=== PATIENT | male | born 1970 | race Caucasian/White ===

== ENCOUNTER 2021-09-08 18:40 | Emergency (ER) | payer MEDICARE, MEDICAID ==
[~2021-09-08] VITALS: Ht 180.3 cm; Wt 75.0 kg
[~2021-09-08 18:40] MED LIST: DEPA500T; DEPA500T2 PO; INVE234I IM; RISP2TAB12; RISP3TAB16; RISP3TAB2 PO; RISPERDAL CONSTA; RISPERDAL CONSTA IM; TYLE325T5 PO; ZIPR80CAP; ZYPR15TA PO; ZYPR20TA; cogentin PO; depakote PO; haldol; haldol PO; no current meds
[2021-09-08 18:51] VITALS: BP 116/79
[2021-09-08] MEDS ORDERED: ZYPR10TA (18:54)
[2021-09-08] MEDS ORDERED: OLAN15TA13 (18:54)
== END 2021-09-08 20:25 | disposition home or self-care (01) ==
LOC: EDBD 18:40 → M ED 18:40
DX: F10.129 Alcohol abuse with intoxication, unspecified (principal); F20.9 Schizophrenia, unspecified; F17.200 Nicotine dependence, unspecified, uncomplicated

== ENCOUNTER 2022-02-02 20:45 | Inpatient (IN) | payer MEDICAID, MEDICARE ==
[~2022-02-02] VITALS: Ht 180.3 cm; Wt 76.4 kg
[~2022-02-02 20:45] MED LIST changes: +OLAN15TA13 PO; +ZYPR10TA
[2022-02-02] MEDS ORDERED: ACETAMINOPHEN 325 MG TAB PO ONE (21:30)
[2022-02-02 21:45] LABS: HEMATOCRIT 39.6 % (42.0-52.0); HEMOGLOBIN 13.4 g/dl (13.5-17.5); MEAN CORPUSCULAR HEMOGLOBIN 32.8 pg (27.0-33.0); MEAN CORPUSCULAR HGB CONC 33.8 g/dl (32.0-36.5); MEAN CORPUSCULAR VOLUME 96.8 fl (80.0-96.0); PLATELET COUNT, AUTOMATED 239 10^3/uL (150-450); RED BLOOD COUNT 4.09 10^6/uL (4.30-6.10); WHITE BLOOD COUNT 11.7 10^3/uL (4.0-10.0)
[2022-02-02 21:52] LABS: AMPHETAMINES LEVEL URINE NEGATIVE (NEGATIVE); BARBITURATES URINE NEGATIVE (NEGATIVE); BENZODIAZEPINES URINE NEGATIVE (NEGATIVE); CANNABINOIDS URINE NEGATIVE (NEGATIVE); COCAINE METABOLITE URINE NEGATIVE (NEGATIVE); METHADONE URINE NEGATIVE (NEGATIVE); OPIATES URINE NEGATIVE (NEGATIVE); PHENCYCLIDINE URINE NEGATIVE (NEGATIVE)
[2022-02-02 22:30] LABS: ACETAMINOPHEN LEVEL < 2.0 UG/ML (10.0-30.0); ALBUMIN 3.8 GM/DL (3.2-5.2); ALT/SGPT 27 U/L (12-78); BILIRUBIN,DIRECT 0.1 MG/DL (0.0-0.2); BILIRUBIN,TOTAL 0.3 MG/DL (0.2-1.0); BLOOD UREA NITROGEN 7 MG/DL (7-18); CARBON DIOXIDE LEVEL 26 MEQ/L (21-32); CHLORIDE LEVEL 111 MEQ/L (98-107); CREATININE FOR GFR 0.94 MG/DL (0.70-1.30); ETHYL ALCOHOL (ETHANOL) 0.121 % (0.000-0.010); GLOMERULAR FILTRATION RATE > 60.0 (>56); GLUCOSE, FASTING 93 MG/DL (70-100); POTASSIUM SERUM 4.2 MEQ/L (3.5-5.1); SALICYLATE LEVEL 4.2 MG/DL (5.0-30.0); SODIUM LEVEL 141 MEQ/L (136-145); TOTAL PROTEIN 7.2 GM/DL (6.4-8.2)
[2022-02-02 22:38] LABS: RSV AMPLIFICATION NEGATIVE (NEGATIVE)
[2022-02-03] MEDS ORDERED: MED REC COMMENT (07:33)
[2022-02-03] MEDS ORDERED: HOME MED LIST COMPLETE! XX SCH (07:35)
[2022-02-03] MEDS: MULTIVITAMINS/MINERALS THERAP 1 TAB PO SCH ×2 (09:00→15:02)
[2022-02-03] MEDS: FOLIC ACID 1MG TAB PO SCH ×2 (09:00→15:02)
[2022-02-03] MEDS: NICOTINE 21MG/24HR 1 EA TRANSDERMAL TD SCH (09:00)
[2022-02-03] MEDS: THIAMINE 100 MG TAB PO SCH ×3 (09:00→21:21)
[2022-02-03] MEDS ORDERED: LORazepam 2 MG TAB PO PRN (14:10)
[2022-02-03] MEDS ORDERED: MAALOX 30 ML SUSP *UDC PO PRN (14:10)
[2022-02-03 15:55] VITALS: BP 132/82
[2022-02-03] MEDS ORDERED: OLANZapine 10 MG TAB PO ONE (17:00)
[2022-02-03] MEDS ORDERED: OLANZapine 5 MG TAB PO SCH ×2 (21:00)
[2022-02-04] MEDS: NICOTINE 21MG/24HR 1 EA TRANSDERMAL TD SCH (08:22)
[2022-02-04] MEDS: FOLIC ACID 1MG TAB PO SCH (08:22)
[2022-02-04] MEDS: THIAMINE 100 MG TAB PO SCH ×2 (08:22→20:16)
[2022-02-04] MEDS: MULTIVITAMINS/MINERALS THERAP 1 TAB PO SCH (08:22)
[2022-02-04] MEDS ORDERED: BENZTROPINE MESYLATE 2MG/2ML VIAL IM PRN (14:30)
[2022-02-04] MEDS: traZODone 50 MG TAB PO PRN (20:16)
[2022-02-04] MEDS: OLANZapine 5 MG TAB PO SCH (20:16)
[2022-02-05 06:56] VITALS: BP 122/77
[2022-02-05] MEDS: MULTIVITAMINS/MINERALS THERAP 1 TAB PO SCH (08:24)
[2022-02-05] MEDS: FOLIC ACID 1MG TAB PO SCH (08:24)
[2022-02-05] MEDS: THIAMINE 100 MG TAB PO SCH ×2 (08:24→21:00)
[2022-02-05] MEDS: NICOTINE 21MG/24HR 1 EA TRANSDERMAL TD SCH (09:00)
[2022-02-05] MEDS: BENZTROPINE 1 MG TAB PO PRN (12:46)
[2022-02-05 14:11] VITALS: BP 140/80
[2022-02-05 18:38] VITALS: BP 140/80
[2022-02-05] MEDS: OLANZapine 5 MG TAB PO SCH (21:00)
[2022-02-06 06:32] VITALS: BP 128/89
[2022-02-06 06:33] VITALS: BP 128/89
[2022-02-06] MEDS: BENZTROPINE 1 MG TAB PO PRN (08:47)
[2022-02-06] MEDS: FOLIC ACID 1MG TAB PO SCH (08:47)
[2022-02-06] MEDS: MULTIVITAMINS/MINERALS THERAP 1 TAB PO SCH (08:47)
[2022-02-06] MEDS: NICOTINE 21MG/24HR 1 EA TRANSDERMAL TD SCH (08:47)
[2022-02-06 18:00] VITALS: BP 136/78
[2022-02-06] MEDS: traZODone 50 MG TAB PO PRN (20:23)
[2022-02-06] MEDS: OLANZapine 5 MG TAB PO SCH (20:23)
[2022-02-07 06:45] VITALS: BP 125/68
[2022-02-07 07:00] VITALS: BP 125/68
[2022-02-07] MEDS: NICOTINE 21MG/24HR 1 EA TRANSDERMAL TD SCH (07:49)
[2022-02-07] MEDS: FOLIC ACID 1MG TAB PO SCH (07:51)
[2022-02-07] MEDS: BENZTROPINE 1 MG TAB PO PRN (07:52)
[2022-02-07] MEDS: MULTIVITAMINS/MINERALS THERAP 1 TAB PO SCH (07:52)
[2022-02-07] MEDS ORDERED: traZODone 100 MG TAB PO PRN (13:00)
[2022-02-07 16:31] VITALS: BP 98/67
[2022-02-07] MEDS: OLANZapine 5 MG TAB PO SCH (20:19)
[2022-02-08] MEDS: NICOTINE 21MG/24HR 1 EA TRANSDERMAL TD SCH (07:53)
[2022-02-08] MEDS: MULTIVITAMINS/MINERALS THERAP 1 TAB PO SCH (07:55)
[2022-02-08] MEDS: BENZTROPINE 1 MG TAB PO PRN (07:55)
[2022-02-08] MEDS: FOLIC ACID 1MG TAB PO SCH (07:55)
[2022-02-08] MEDS ORDERED: traZODone 50 MG TAB PO PRN (13:20)
[2022-02-08] MEDS ORDERED: LORazepam 2 MG TAB PO PRN (13:20)
[2022-02-08] MEDS: OLANZapine 5 MG TAB PO SCH (20:04)
[2022-02-08] MEDS: IBUPROFEN 400MG TAB PO PRN (20:05)
[2022-02-09] MEDS: NICOTINE 21MG/24HR 1 EA TRANSDERMAL TD SCH (09:00)
[2022-02-09] MEDS: FOLIC ACID 1MG TAB PO SCH (10:10)
[2022-02-09] MEDS: MULTIVITAMINS/MINERALS THERAP 1 TAB PO SCH (10:10)
[2022-02-09] MEDS: OLANZapine 5 MG TAB PO SCH (20:07)
[2022-02-10 06:41] VITALS: BP 131/72
[2022-02-10] MEDS: NICOTINE 21MG/24HR 1 EA TRANSDERMAL TD SCH (08:03)
[2022-02-10] MEDS: FOLIC ACID 1MG TAB PO SCH (08:03)
[2022-02-10] MEDS: MULTIVITAMINS/MINERALS THERAP 1 TAB PO SCH (08:03)
[2022-02-10] MEDS: BENZTROPINE 1 MG TAB PO PRN ×2 (08:04→20:00)
[2022-02-10] MEDS: IBUPROFEN 400MG TAB PO PRN (17:06)
[2022-02-10] MEDS: diphenhydrAMINE 25MG CAP PO PRN (17:06)
[2022-02-10] MEDS: OLANZapine 5 MG TAB PO SCH (20:00)
[2022-02-11 05:51] VITALS: BP 109/74
[2022-02-11] MEDS: AUGMENTIN 875 MG TAB PO SCH ×2 (09:00→20:09)
[2022-02-11] MEDS: NICOTINE 21MG/24HR 1 EA TRANSDERMAL TD SCH (09:00)
[2022-02-11] MEDS: MULTIVITAMINS/MINERALS THERAP 1 TAB PO SCH (09:17)
[2022-02-11] MEDS: BENZTROPINE 1 MG TAB PO PRN (09:17)
[2022-02-11] MEDS: FOLIC ACID 1MG TAB PO SCH (09:17)
[2022-02-11 13:16] LABS: BASO % 0.2 % (0.0-1.0); EOS # 0.1 10^3/uL (0.0-0.5); HEMOGLOBIN 14.9 g/dl (13.5-17.5); LYMPH # 2.2 10^3/uL (1.5-5.0); LYMPH % 17.6 % (24.0-44.0); MEAN CORPUSCULAR HEMOGLOBIN 32.7 pg (27.0-33.0); MEAN CORPUSCULAR HGB CONC 33.1 g/dl (32.0-36.5); MEAN CORPUSCULAR VOLUME 98.7 fl (80.0-96.0); MONO % 7.6 % (2.0-8.0); NEUTROPHILS # 9.1 10^3/uL (1.5-8.5); NEUTROPHILS % 73.2 % (36.0-66.0); PLATELET COUNT, AUTOMATED 297 10^3/uL (150-450); RED BLOOD COUNT 4.56 10^6/uL (4.30-6.10); WHITE BLOOD COUNT 12.5 10^3/uL (4.0-10.0)
[2022-02-11 13:59] LABS: FREE T4 0.74 NG/DL (0.76-1.46)
[2022-02-11] MEDS: OLANZapine 5 MG TAB PO SCH (20:09)
[2022-02-12 06:47] VITALS: BP 110/58
[2022-02-12] MEDS: NICOTINE 21MG/24HR 1 EA TRANSDERMAL TD SCH (09:00)
[2022-02-12] MEDS: AUGMENTIN 875 MG TAB PO SCH ×2 (09:09→21:10)
[2022-02-12] MEDS: FOLIC ACID 1MG TAB PO SCH (09:09)
[2022-02-12] MEDS: MULTIVITAMINS/MINERALS THERAP 1 TAB PO SCH (09:09)
[2022-02-12] MEDS: ACETAMINOPHEN TAB 650MG DOSE (2X325MG) PO PRN (16:03)
[2022-02-12 16:28] VITALS: BP 112/58
[2022-02-12] MEDS: OLANZapine 5 MG TAB PO SCH (21:10)
[2022-02-13 06:31] VITALS: BP 112/62
[2022-02-13] MEDS: NICOTINE 21MG/24HR 1 EA TRANSDERMAL TD SCH (07:58)
[2022-02-13] MEDS: MULTIVITAMINS/MINERALS THERAP 1 TAB PO SCH (07:59)
[2022-02-13] MEDS: AUGMENTIN 875 MG TAB PO SCH ×2 (08:00→20:33)
[2022-02-13] MEDS: FOLIC ACID 1MG TAB PO SCH (08:00)
[2022-02-13] MEDS: ACETAMINOPHEN TAB 650MG DOSE (2X325MG) PO PRN (15:44)
[2022-02-13] MEDS: OLANZapine 5 MG TAB PO SCH (20:33)
[2022-02-14 06:23] VITALS: BP 101/50
[2022-02-14] MEDS: NICOTINE 21MG/24HR 1 EA TRANSDERMAL TD SCH (09:00)
[2022-02-14] MEDS: AUGMENTIN 875 MG TAB PO SCH ×2 (09:48→20:01)
[2022-02-14] MEDS: FOLIC ACID 1MG TAB PO SCH (09:48)
[2022-02-14] MEDS: MULTIVITAMINS/MINERALS THERAP 1 TAB PO SCH (09:48)
[2022-02-14] MEDS ORDERED: TUBERCULIN PPD 5 UNITS/0.1 ML ID ONE (13:00)
[2022-02-14] MEDS ORDERED: PPD DOCUMENTATION ENTRY MISC XX ONE (13:00)
[2022-02-14 18:17] VITALS: BP 139/93
[2022-02-14] MEDS: ACETAMINOPHEN TAB 650MG DOSE (2X325MG) PO PRN (19:20)
[2022-02-14] MEDS: OLANZapine 5 MG TAB PO SCH (20:01)
[2022-02-15 06:08] VITALS: BP 104/48
[2022-02-15] MEDS: NICOTINE 21MG/24HR 1 EA TRANSDERMAL TD SCH (09:00)
[2022-02-15] MEDS: MULTIVITAMINS/MINERALS THERAP 1 TAB PO SCH (09:46)
[2022-02-15] MEDS: FOLIC ACID 1MG TAB PO SCH (09:46)
[2022-02-15] MEDS: AUGMENTIN 875 MG TAB PO SCH ×2 (09:46→21:21)
[2022-02-15] MEDS: ACETAMINOPHEN TAB 650MG DOSE (2X325MG) PO PRN (15:59)
[2022-02-15] MEDS: NEOSPORIN TOP OINT 15GM TOP SCH ×2 (17:12→21:21)
[2022-02-15 18:12] VITALS: BP 108/79
[2022-02-15] MEDS: traZODone 50 MG TAB PO PRN (21:20)
[2022-02-15] MEDS: OLANZapine 5 MG TAB PO SCH (21:21)
[2022-02-16 06:07] VITALS: BP 101/55
[2022-02-16] MEDS: NEOSPORIN TOP OINT 15GM TOP SCH ×2 (09:00→20:22)
[2022-02-16] MEDS: NICOTINE 21MG/24HR 1 EA TRANSDERMAL TD SCH (09:00)
[2022-02-16] MEDS: FOLIC ACID 1MG TAB PO SCH (09:06)
[2022-02-16] MEDS: AUGMENTIN 875 MG TAB PO SCH ×2 (09:06→20:22)
[2022-02-16] MEDS: ACETAMINOPHEN TAB 650MG DOSE (2X325MG) PO PRN (09:06)
[2022-02-16] MEDS: MULTIVITAMINS/MINERALS THERAP 1 TAB PO SCH (09:06)
[2022-02-16] MEDS: BENZTROPINE 1 MG TAB PO PRN (09:07)
[2022-02-16] MEDS ORDERED: PPD DOCUMENTATION ENTRY MISC XX ONE (12:00)
[2022-02-16 17:55] VITALS: BP 149/79
[2022-02-16] MEDS: OLANZapine 5 MG TAB PO SCH (20:22)
[2022-02-16] MEDS: traZODone 50 MG TAB PO PRN (20:24)
[2022-02-17] MEDS: NICOTINE 21MG/24HR 1 EA TRANSDERMAL TD SCH (09:00)
[2022-02-17] MEDS: AUGMENTIN 875 MG TAB PO SCH ×2 (09:24→20:21)
[2022-02-17] MEDS: MULTIVITAMINS/MINERALS THERAP 1 TAB PO SCH (09:24)
[2022-02-17] MEDS: FOLIC ACID 1MG TAB PO SCH (09:25)
[2022-02-17] MEDS: ACETAMINOPHEN TAB 650MG DOSE (2X325MG) PO PRN (09:26)
[2022-02-17] MEDS: BENZTROPINE 1 MG TAB PO SCH ×2 (09:28→20:21)
[2022-02-17] MEDS: NEOSPORIN TOP OINT 15GM TOP SCH ×2 (09:32→20:24)
[2022-02-17 18:16] VITALS: BP 118/64
[2022-02-17] MEDS: OLANZapine 5 MG TAB PO SCH (20:21)
[2022-02-17] MEDS: MOM 30ML SUSPENSION UDC PO PRN (21:03)
[2022-02-18] MEDS: NICOTINE 21MG/24HR 1 EA TRANSDERMAL TD SCH (08:39)
[2022-02-18] MEDS: BENZTROPINE 1 MG TAB PO SCH ×2 (09:02→21:41)
[2022-02-18] MEDS: FOLIC ACID 1MG TAB PO SCH (09:02)
[2022-02-18] MEDS: MULTIVITAMINS/MINERALS THERAP 1 TAB PO SCH (09:02)
[2022-02-18] MEDS: NEOSPORIN TOP OINT 15GM TOP SCH ×2 (09:03→21:42)
[2022-02-18 18:04] VITALS: BP 112/65
[2022-02-18] MEDS: ACETAMINOPHEN TAB 650MG DOSE (2X325MG) PO PRN (21:41)
[2022-02-18] MEDS: OLANZapine 5 MG TAB PO SCH (21:42)
[2022-02-19 06:43] VITALS: BP 106/55
[2022-02-19] MEDS: BENZTROPINE 1 MG TAB PO SCH ×2 (08:47→21:10)
[2022-02-19] MEDS: NEOSPORIN TOP OINT 15GM TOP SCH ×2 (08:47→21:08)
[2022-02-19] MEDS: FOLIC ACID 1MG TAB PO SCH (08:47)
[2022-02-19] MEDS: MULTIVITAMINS/MINERALS THERAP 1 TAB PO SCH (08:47)
[2022-02-19] MEDS: NICOTINE 21MG/24HR 1 EA TRANSDERMAL TD SCH (08:48)
[2022-02-19] MEDS: ACETAMINOPHEN TAB 650MG DOSE (2X325MG) PO PRN ×2 (17:01→17:02)
[2022-02-19 18:00] VITALS: BP 100/53
[2022-02-19] MEDS: OLANZapine 5 MG TAB PO SCH (21:10)
[2022-02-20 06:20] VITALS: BP 129/74
[2022-02-20] MEDS: NEOSPORIN TOP OINT 15GM TOP SCH ×2 (09:00→20:02)
[2022-02-20] MEDS: NICOTINE 21MG/24HR 1 EA TRANSDERMAL TD SCH (09:00)
[2022-02-20] MEDS: MULTIVITAMINS/MINERALS THERAP 1 TAB PO SCH (09:24)
[2022-02-20] MEDS: BENZTROPINE 1 MG TAB PO SCH ×2 (09:24→20:00)
[2022-02-20] MEDS: FOLIC ACID 1MG TAB PO SCH (09:24)
[2022-02-20] MEDS: MOM 30ML SUSPENSION UDC PO PRN (15:31)
[2022-02-20] MEDS: ACETAMINOPHEN TAB 650MG DOSE (2X325MG) PO PRN (16:07)
[2022-02-20 18:38] VITALS: BP 100/58
[2022-02-20] MEDS: OLANZapine 5 MG TAB PO SCH (20:00)
[2022-02-20] MEDS: PILL CUTTER 1 EACH XX PRN (20:01)
[2022-02-20] MEDS: traZODone 50 MG TAB PO PRN (20:02)
[2022-02-21 05:41] VITALS: BP 104/66
[2022-02-21] MEDS: NICOTINE 21MG/24HR 1 EA TRANSDERMAL TD SCH (09:00)
[2022-02-21] MEDS: NEOSPORIN TOP OINT 15GM TOP SCH ×2 (09:00→20:11)
[2022-02-21] MEDS: MULTIVITAMINS/MINERALS THERAP 1 TAB PO SCH (09:41)
[2022-02-21] MEDS: FOLIC ACID 1MG TAB PO SCH (09:41)
[2022-02-21] MEDS: ACETAMINOPHEN TAB 650MG DOSE (2X325MG) PO PRN ×2 (09:41→20:10)
[2022-02-21] MEDS: BENZTROPINE 1 MG TAB PO SCH ×2 (09:41→20:10)
[2022-02-21] MEDS: OLANZapine 5 MG TAB PO SCH (20:10)
[2022-02-22] MEDS: traZODone 50 MG TAB PO PRN ×2 (01:24→20:53)
[2022-02-22 06:22] VITALS: BP 120/57
[2022-02-22] MEDS: NEOSPORIN TOP OINT 15GM TOP SCH ×2 (09:00→20:55)
[2022-02-22] MEDS: NICOTINE 21MG/24HR 1 EA TRANSDERMAL TD SCH (09:00)
[2022-02-22] MEDS: BENZTROPINE 1 MG TAB PO SCH ×2 (09:23→20:53)
[2022-02-22] MEDS: FOLIC ACID 1MG TAB PO SCH (09:23)
[2022-02-22] MEDS: MULTIVITAMINS/MINERALS THERAP 1 TAB PO SCH (09:23)
[2022-02-22] MEDS: ACETAMINOPHEN TAB 650MG DOSE (2X325MG) PO PRN (15:07)
[2022-02-22 16:21] VITALS: BP 100/60
[2022-02-22] MEDS: IBUPROFEN 400MG TAB PO PRN (19:01)
[2022-02-22] MEDS: diphenhydrAMINE 25MG CAP PO PRN (19:20)
[2022-02-22] MEDS: OLANZapine 5 MG TAB PO SCH (20:54)
[2022-02-23 06:19] VITALS: BP 116/62
[2022-02-23] MEDS: NICOTINE 21MG/24HR 1 EA TRANSDERMAL TD SCH (09:00)
[2022-02-23] MEDS: NEOSPORIN TOP OINT 15GM TOP SCH ×2 (09:00→20:04)
[2022-02-23] MEDS: BENZTROPINE 1 MG TAB PO SCH ×2 (09:17→20:05)
[2022-02-23] MEDS: MULTIVITAMINS/MINERALS THERAP 1 TAB PO SCH (09:17)
[2022-02-23] MEDS: FOLIC ACID 1MG TAB PO SCH (09:17)
[2022-02-23 16:42] VITALS: BP 105/60
[2022-02-23] MEDS: ACETAMINOPHEN TAB 650MG DOSE (2X325MG) PO PRN (16:47)
[2022-02-23] MEDS: OLANZapine 5 MG TAB PO SCH (20:05)
[2022-02-23] MEDS: PILL CUTTER 1 EACH XX PRN (20:05)
[2022-02-23] MEDS: traZODone 50 MG TAB PO PRN (20:05)
[2022-02-23] MEDS: MOM 30ML SUSPENSION UDC PO PRN (20:45)
[2022-02-24 06:16] VITALS: BP 106/64
[2022-02-24] MEDS: NICOTINE 21MG/24HR 1 EA TRANSDERMAL TD SCH (08:57)
[2022-02-24] MEDS: NEOSPORIN TOP OINT 15GM TOP SCH ×2 (08:57→21:00)
[2022-02-24] MEDS: MULTIVITAMINS/MINERALS THERAP 1 TAB PO SCH (09:19)
[2022-02-24] MEDS: BENZTROPINE 1 MG TAB PO SCH ×2 (09:19→21:57)
[2022-02-24] MEDS: FOLIC ACID 1MG TAB PO SCH (09:19)
[2022-02-24 18:20] VITALS: BP 108/55
[2022-02-24] MEDS: traZODone 50 MG TAB PO PRN (21:57)
[2022-02-24] MEDS: OLANZapine 5 MG TAB PO SCH (21:57)
[2022-02-25 06:22] VITALS: BP 103/64
[2022-02-25] MEDS: NEOSPORIN TOP OINT 15GM TOP SCH ×2 (09:00→20:23)
[2022-02-25] MEDS: NICOTINE 21MG/24HR 1 EA TRANSDERMAL TD SCH (09:00)
[2022-02-25] MEDS: FOLIC ACID 1MG TAB PO SCH (09:32)
[2022-02-25] MEDS: MULTIVITAMINS/MINERALS THERAP 1 TAB PO SCH (09:32)
[2022-02-25] MEDS: BENZTROPINE 1 MG TAB PO SCH ×2 (09:32→20:22)
[2022-02-25] MEDS: ACETAMINOPHEN TAB 650MG DOSE (2X325MG) PO PRN (16:27)
[2022-02-25] MEDS: traZODone 50 MG TAB PO PRN (20:22)
[2022-02-25] MEDS: OLANZapine 5 MG TAB PO SCH (20:22)
[2022-02-25] MEDS: IBUPROFEN 400MG TAB PO PRN (20:36)
[2022-02-26 06:29] VITALS: BP 101/58
[2022-02-26] MEDS: NICOTINE 21MG/24HR 1 EA TRANSDERMAL TD SCH (08:48)
[2022-02-26] MEDS: MULTIVITAMINS/MINERALS THERAP 1 TAB PO SCH (08:49)
[2022-02-26] MEDS: BENZTROPINE 1 MG TAB PO SCH ×2 (08:49→21:28)
[2022-02-26] MEDS: FOLIC ACID 1MG TAB PO SCH (08:49)
[2022-02-26] MEDS: NEOSPORIN TOP OINT 15GM TOP SCH ×2 (09:00→21:00)
[2022-02-26] MEDS: OLANZapine 5 MG TAB PO SCH (21:28)
[2022-02-26] MEDS: traZODone 50 MG TAB PO PRN (21:28)
[2022-02-27 06:32] VITALS: BP 92/56
[2022-02-27] MEDS: NICOTINE 21MG/24HR 1 EA TRANSDERMAL TD SCH (09:00)
[2022-02-27] MEDS: NEOSPORIN TOP OINT 15GM TOP SCH ×2 (09:00→20:55)
[2022-02-27] MEDS: MULTIVITAMINS/MINERALS THERAP 1 TAB PO SCH (09:25)
[2022-02-27] MEDS: BENZTROPINE 1 MG TAB PO SCH ×2 (09:25→20:55)
[2022-02-27] MEDS: FOLIC ACID 1MG TAB PO SCH (09:25)
[2022-02-27] MEDS: ACETAMINOPHEN TAB 650MG DOSE (2X325MG) PO PRN (17:20)
[2022-02-27] MEDS: OLANZapine 5 MG TAB PO SCH (20:55)
[2022-02-27] MEDS: traZODone 50 MG TAB PO PRN (20:55)
[2022-02-28 06:17] VITALS: BP 99/56
[2022-02-28] MEDS: NICOTINE 21MG/24HR 1 EA TRANSDERMAL TD SCH (08:15)
[2022-02-28] MEDS: NEOSPORIN TOP OINT 15GM TOP SCH ×2 (08:17→20:02)
[2022-02-28] MEDS: BENZTROPINE 1 MG TAB PO SCH ×2 (08:18→20:01)
[2022-02-28] MEDS: FOLIC ACID 1MG TAB PO SCH (08:18)
[2022-02-28] MEDS: MULTIVITAMINS/MINERALS THERAP 1 TAB PO SCH (08:18)
[2022-02-28] MEDS: ACETAMINOPHEN TAB 650MG DOSE (2X325MG) PO PRN (17:16)
[2022-02-28 17:22] VITALS: BP 98/57
[2022-02-28] MEDS: OLANZapine 5 MG TAB PO SCH (20:01)
[2022-02-28] MEDS: traZODone 50 MG TAB PO PRN (20:01)
[2022-02-28] MEDS: PILL CUTTER 1 EACH XX PRN (20:01)
[2022-03-01 06:21] VITALS: BP 98/68
[2022-03-01] MEDS: BENZTROPINE 1 MG TAB PO SCH ×2 (08:57→20:01)
[2022-03-01] MEDS: NICOTINE 21MG/24HR 1 EA TRANSDERMAL TD SCH (08:57)
[2022-03-01] MEDS: MULTIVITAMINS/MINERALS THERAP 1 TAB PO SCH (08:57)
[2022-03-01] MEDS: FOLIC ACID 1MG TAB PO SCH (08:57)
[2022-03-01] MEDS: NEOSPORIN TOP OINT 15GM TOP SCH ×2 (08:58→21:00)
[2022-03-01] MEDS: ACETAMINOPHEN TAB 650MG DOSE (2X325MG) PO PRN (16:42)
[2022-03-01 18:21] VITALS: BP 105/57
[2022-03-01] MEDS: IBUPROFEN 400MG TAB PO PRN (19:31)
[2022-03-01] MEDS: traZODone 50 MG TAB PO PRN (20:01)
[2022-03-01] MEDS: OLANZapine 5 MG TAB PO SCH (20:01)
[2022-03-02 06:16] VITALS: BP 101/60
[2022-03-02] MEDS: FOLIC ACID 1MG TAB PO SCH (07:54)
[2022-03-02] MEDS: BENZTROPINE 1 MG TAB PO SCH (07:54)
[2022-03-02] MEDS: MULTIVITAMINS/MINERALS THERAP 1 TAB PO SCH (07:55)
[2022-03-02] MEDS: NICOTINE 21MG/24HR 1 EA TRANSDERMAL TD SCH (07:55)
[2022-03-02] MEDS: NEOSPORIN TOP OINT 15GM TOP SCH (07:55)
[2022-03-02] MEDS: ACETAMINOPHEN TAB 650MG DOSE (2X325MG) PO PRN (09:45)
[2022-03-02] MEDS ORDERED: BENZ-52 PO (12:42)
[2022-03-02] MEDS ORDERED: NICO21PAT TD (12:42)
[2022-03-02] MEDS ORDERED: TRAZ-252 PO (12:42)
[2022-03-02] MEDS ORDERED: ZYPR20TA PO (12:42)
[2022-03-02] MEDS ORDERED: HALO5TAB33 PO (12:42)
== END 2022-03-02 13:44 | disposition home or self-care (01) | DRG 885 ==
LOC: M ED 20:45 → M ED INP 02-03 14:10 → M PSY 02-03 15:44
PROVIDERS: ADMIT Student in an Organized Health Care Education/Training Program; ATTEND Student in an Organized Health Care Education/Training Program
DX: F20.9 Schizophrenia, unspecified (principal); R45.850 Homicidal ideations; F10.929 Alcohol use, unspecified with intoxication, unspecified; Z20.822 Contact with and (suspected) exposure to COVID-19; Z79.899 Other long term (current) drug therapy; D72.829 Elevated white blood cell count, unspecified; K08.89 Other specified disorders of teeth and supporting structures

== ENCOUNTER 2022-03-03 12:41 | Emergency (ER) | payer MEDICAID, MEDICARE ==
[~2022-03-03] VITALS: Ht 180.3 cm; Wt 77.3 kg
[~2022-03-03 12:41] MED LIST changes: +BENZ-52 PO; +HALO5TAB33 PO; +MED REC COMMENT; +NICO21PAT TD; +TRAZ-252 PO; +ZYPR20TA PO
[2022-03-03 15:12] LABS: HEMATOCRIT 41.8 % (42.0-52.0); HEMOGLOBIN 13.8 g/dl (13.5-17.5); MEAN CORPUSCULAR HEMOGLOBIN 31.9 pg (27.0-33.0); MEAN CORPUSCULAR VOLUME 96.5 fl (80.0-96.0); PLATELET COUNT, AUTOMATED 233 10^3/uL (150-450); RED BLOOD COUNT 4.33 10^6/uL (4.30-6.10); WHITE BLOOD COUNT 12.2 10^3/uL (4.0-10.0)
[2022-03-03 15:52] LABS: AMPHETAMINES LEVEL URINE NEGATIVE (NEGATIVE); BARBITURATES URINE NEGATIVE (NEGATIVE); BENZODIAZEPINES URINE NEGATIVE (NEGATIVE); CANNABINOIDS URINE NEGATIVE (NEGATIVE); COCAINE METABOLITE URINE NEGATIVE (NEGATIVE); METHADONE URINE NEGATIVE (NEGATIVE); OPIATES URINE NEGATIVE (NEGATIVE); PHENCYCLIDINE URINE NEGATIVE (NEGATIVE)
[2022-03-03 16:04] LABS: ACETAMINOPHEN LEVEL < 2.0 UG/ML (10.0-30.0); ALBUMIN 4.2 GM/DL (3.2-5.2); ALT/SGPT 36 U/L (12-78); BILIRUBIN,DIRECT 0.1 MG/DL (0.0-0.2); BILIRUBIN,TOTAL 0.4 MG/DL (0.2-1.0); BLOOD UREA NITROGEN 7 MG/DL (7-18); CALCIUM LEVEL 9.2 MG/DL (8.5-10.1); CARBON DIOXIDE LEVEL 30 MEQ/L (21-32); CHLORIDE LEVEL 102 MEQ/L (98-107); ETHYL ALCOHOL (ETHANOL) 0.078 % (0.000-0.010); GLOMERULAR FILTRATION RATE > 60.0 (>56); GLUCOSE, FASTING 104 MG/DL (70-100); SALICYLATE LEVEL 2.3 MG/DL (5.0-30.0); SODIUM LEVEL 138 MEQ/L (136-145); TOTAL PROTEIN 7.8 GM/DL (6.4-8.2)
[2022-03-03 16:05] LABS: RSV AMPLIFICATION NEGATIVE (NEGATIVE)
[2022-03-03 18:07] VITALS: BP 121/75
== END 2022-03-03 18:09 | disposition home or self-care (01) ==
LOC: M ED 13:26
DX: F43.0 Acute stress reaction (principal); F20.9 Schizophrenia, unspecified; F10.129 Alcohol abuse with intoxication, unspecified; Z79.899 Other long term (current) drug therapy

== ENCOUNTER 2022-05-09 01:35 | Inpatient (IN) | payer MEDICAID, MEDICARE ==
[~2022-05-09] VITALS: Ht 180.3 cm; Wt 77.0 kg
[2022-05-09 02:49] LABS: HEMATOCRIT 55.3 % (42.0-52.0); HEMOGLOBIN 18.5 g/dl (13.5-17.5); MEAN CORPUSCULAR HEMOGLOBIN 32.4 pg (27.0-33.0); MEAN CORPUSCULAR HGB CONC 33.5 g/dl (32.0-36.5); MEAN CORPUSCULAR VOLUME 96.8 fl (80.0-96.0); PLATELET COUNT, AUTOMATED 253 10^3/uL (150-450); RED BLOOD COUNT 5.71 10^6/uL (4.30-6.10)
[2022-05-09 03:14] LABS: ETHYL ALCOHOL (ETHANOL) 0.025 % (0.000-0.010)
[2022-05-09 03:15] LABS: ACETAMINOPHEN LEVEL < 2.0 UG/ML (10.0-20.0); ALBUMIN 4.6 G/DL (3.2-5.2); ALKALINE PHOSPHATASE 77 U/L (46-116); ALT/SGPT 23 U/L (7.0-40); AST/SGOT 45 U/L (<34); BILIRUBIN,DIRECT 0.4 MG/DL (<0.4); BILIRUBIN,TOTAL 1.4 MG/DL (0.3-1.2); BLOOD UREA NITROGEN 15 MG/DL (9-23); CALCIUM LEVEL 9.5 MG/DL (8.5-10.1); CARBON DIOXIDE LEVEL 24 MMOL/L (20-31); CHLORIDE LEVEL 105 MMOL/L (98-107); GLOMERULAR FILTRATION RATE > 60.0 (>56); GLUCOSE, FASTING 57 MG/DL (60-100); POTASSIUM SERUM 4.3 MMOL/L (3.5-5.1); SALICYLATE LEVEL < 3.0 MG/DL (<30); SODIUM LEVEL 141 MMOL/L (136-145); TOTAL PROTEIN 8.4 G/DL (5.7-8.2)
[2022-05-09 03:18] LABS: THYROID STIMULATING HORMONE 3.446 uIU/ML (0.55-4.78)
[2022-05-09 03:21] LABS: RSV AMPLIFICATION NEGATIVE (NEGATIVE)
[2022-05-09] MEDS ORDERED: BENZ-52 PO (04:25)
[2022-05-09] MEDS ORDERED: OLAN20TA14 PO (04:25)
[2022-05-09] MEDS ORDERED: HALO5TAB33 PO (04:25)
[2022-05-09] MEDS ORDERED: TRAZ-252 PO (04:27)
[2022-05-09] MEDS ORDERED: HOME MED LIST COMPLETE! XX SCH (04:30)
[2022-05-09] MEDS ORDERED: traZODone 50 MG TAB PO PRN (12:45)
[2022-05-09 13:25] LABS: AMPHETAMINES LEVEL URINE NEGATIVE (NEGATIVE); BARBITURATES URINE NEGATIVE (NEGATIVE); BENZODIAZEPINES URINE NEGATIVE (NEGATIVE); COCAINE METABOLITE URINE NEGATIVE (NEGATIVE); METHADONE URINE NEGATIVE (NEGATIVE); OPIATES URINE NEGATIVE (NEGATIVE); PHENCYCLIDINE URINE NEGATIVE (NEGATIVE)
[2022-05-09 13:27] LABS: CANNABINOIDS URINE POSITIVE (NEGATIVE)
[2022-05-09] MEDS ORDERED: OLANZapine 10 MG TAB PO SCH (21:00)
[2022-05-09] MEDS: BENZTROPINE 1 MG TAB PO SCH (21:38)
[2022-05-10] MEDS: NICOTINE 21MG/24HR 1 EA TRANSDERMAL TD SCH (09:00)
[2022-05-10] MEDS: BENZTROPINE 1 MG TAB PO SCH ×2 (09:19→20:50)
[2022-05-10] MEDS ORDERED: LORazepam 2 MG/ML VIAL IM STA (12:27)
[2022-05-10] MEDS ORDERED: HALOPERIDOL 5MG/ML 1ML VIAL IM STA (12:27)
[2022-05-10] MEDS ORDERED: diphenhydrAMINE 50MG/ML VIAL IM STA (12:27)
[2022-05-10] MEDS ORDERED: MAALOX 30 ML SUSP *UDC PO PRN (12:35)
[2022-05-10] MEDS ORDERED: MOM 30ML SUSPENSION UDC PO PRN (12:35)
[2022-05-10] MEDS ORDERED: LORazepam 2 MG TAB PO PRN (12:35)
[2022-05-10] MEDS ORDERED: traZODone 50 MG TAB PO PRN (12:35)
[2022-05-10] MEDS: FOLIC ACID 1MG TAB PO SCH (13:47)
[2022-05-10] MEDS: IBUPROFEN 400MG TAB PO PRN ×2 (13:48→20:52)
[2022-05-10] MEDS: THIAMINE 100 MG TAB PO SCH ×2 (13:48→20:50)
[2022-05-10] MEDS: MULTIVITAMINS/MINERALS THERAP 1 TAB PO SCH (13:49)
[2022-05-10 20:43] VITALS: BP 115/72
[2022-05-10] MEDS: traZODone 50 MG TAB PO PRN (20:51)
[2022-05-10] MEDS ORDERED: OLANZapine 10 MG TAB PO SCH (21:00)
[2022-05-11 06:03] VITALS: BP 128/77
[2022-05-11] MEDS: NICOTINE 21MG/24HR 1 EA TRANSDERMAL TD SCH (09:00)
[2022-05-11] MEDS: FOLIC ACID 1MG TAB PO SCH (09:28)
[2022-05-11] MEDS: THIAMINE 100 MG TAB PO SCH ×2 (09:28→21:15)
[2022-05-11] MEDS: MULTIVITAMINS/MINERALS THERAP 1 TAB PO SCH (09:29)
[2022-05-11] MEDS: BENZTROPINE 1 MG TAB PO SCH ×2 (09:29→21:15)
[2022-05-11] MEDS: LORazepam 1 MG TAB PO PRN ×2 (11:47→18:14)
[2022-05-11 14:00] VITALS: BP 141/92
[2022-05-11 18:31] VITALS: BP 141/92
[2022-05-11 18:39] VITALS: BP 141/92
[2022-05-11] MEDS ORDERED: LORazepam 2 MG/ML VIAL IM STA (18:46)
[2022-05-11] MEDS ORDERED: diphenhydrAMINE 50MG/ML VIAL IM STA (18:46)
[2022-05-11] MEDS ORDERED: HALOPERIDOL 5MG/ML 1ML VIAL IM STA (18:46)
[2022-05-12 06:40] VITALS: BP 137/89
[2022-05-12 06:41] VITALS: BP 137/89
[2022-05-12] MEDS: NICOTINE 21MG/24HR 1 EA TRANSDERMAL TD SCH (09:00)
[2022-05-12] MEDS: BENZTROPINE 1 MG TAB PO SCH ×2 (10:00→20:43)
[2022-05-12] MEDS: MULTIVITAMINS/MINERALS THERAP 1 TAB PO SCH (10:00)
[2022-05-12] MEDS: FOLIC ACID 1MG TAB PO SCH (10:00)
[2022-05-12] MEDS: THIAMINE 100 MG TAB PO SCH ×2 (10:00→20:43)
[2022-05-12] MEDS: LORazepam 1 MG TAB PO PRN (13:48)
[2022-05-12 19:40] VITALS: BP 129/83
[2022-05-12] MEDS: IBUPROFEN 400MG TAB PO PRN (20:44)
[2022-05-13 06:32] VITALS: BP 112/69
[2022-05-13 06:33] VITALS: BP 112/69
[2022-05-13] MEDS: NICOTINE 21MG/24HR 1 EA TRANSDERMAL TD SCH (08:41)
[2022-05-13] MEDS: FOLIC ACID 1MG TAB PO SCH (08:41)
[2022-05-13] MEDS: BENZTROPINE 1 MG TAB PO SCH ×2 (08:42→20:25)
[2022-05-13] MEDS: MULTIVITAMINS/MINERALS THERAP 1 TAB PO SCH (08:43)
[2022-05-13] MEDS: IBUPROFEN 400MG TAB PO PRN (13:55)
[2022-05-13 14:50] VITALS: BP 142/83
[2022-05-13] MEDS: LORazepam 1 MG TAB PO PRN (17:00)
[2022-05-13 18:01] VITALS: BP 142/83
[2022-05-14 06:35] VITALS: BP 130/70
[2022-05-14] MEDS: MULTIVITAMINS/MINERALS THERAP 1 TAB PO SCH (08:35)
[2022-05-14] MEDS: BENZTROPINE 1 MG TAB PO SCH ×2 (08:35→20:03)
[2022-05-14] MEDS: NICOTINE 21MG/24HR 1 EA TRANSDERMAL TD SCH (08:35)
[2022-05-14] MEDS: IBUPROFEN 400MG TAB PO PRN (09:44)
[2022-05-14 17:51] VITALS: BP 131/82
[2022-05-14] MEDS: IBUPROFEN 800 MG TAB PO PRN (19:48)
[2022-05-14] MEDS: OMEPRAZOLE 20MG CAP PO SCH (20:03)
[2022-05-15] MEDS: ACETAMINOPHEN 500 MG TAB PO PRN ×2 (05:44→18:15)
[2022-05-15 06:23] VITALS: BP 100/56
[2022-05-15] MEDS: NICOTINE 21MG/24HR 1 EA TRANSDERMAL TD SCH (09:00)
[2022-05-15] MEDS: MULTIVITAMINS/MINERALS THERAP 1 TAB PO SCH (09:11)
[2022-05-15] MEDS: BENZTROPINE 1 MG TAB PO SCH ×2 (09:11→21:22)
[2022-05-15] MEDS: IBUPROFEN 800 MG TAB PO PRN (11:25)
[2022-05-15 17:57] VITALS: BP 128/65
[2022-05-15] MEDS: OMEPRAZOLE 20MG CAP PO SCH (21:21)
[2022-05-15] MEDS: traZODone 50 MG TAB PO PRN (21:22)
[2022-05-16] MEDS: ACETAMINOPHEN 500 MG TAB PO PRN (06:27)
[2022-05-16 06:45] VITALS: BP 120/64
[2022-05-16] MEDS: NICOTINE 21MG/24HR 1 EA TRANSDERMAL TD SCH (09:00)
[2022-05-16] MEDS: BENZTROPINE 1 MG TAB PO SCH ×2 (09:23→20:07)
[2022-05-16] MEDS: MULTIVITAMINS/MINERALS THERAP 1 TAB PO SCH (09:24)
[2022-05-16] MEDS: LORazepam 1 MG TAB PO PRN (10:13)
[2022-05-16] MEDS: IBUPROFEN 800 MG TAB PO PRN ×2 (10:13→10:17)
[2022-05-16] MEDS: oxyCODONE 5MG TAB PO PRN ×2 (11:27→20:07)
[2022-05-16 17:50] VITALS: BP 132/78
[2022-05-16] MEDS: OMEPRAZOLE 20MG CAP PO SCH (20:07)
[2022-05-16] MEDS: traZODone 50 MG TAB PO PRN (20:07)
[2022-05-17] MEDS: oxyCODONE 5MG TAB PO PRN ×2 (04:42→21:51)
[2022-05-17 06:41] VITALS: BP 94/52
[2022-05-17] MEDS: NICOTINE 21MG/24HR 1 EA TRANSDERMAL TD SCH (09:00)
[2022-05-17] MEDS: MULTIVITAMINS/MINERALS THERAP 1 TAB PO SCH (09:08)
[2022-05-17] MEDS: BENZTROPINE 1 MG TAB PO SCH ×2 (09:08→21:47)
[2022-05-17] MEDS: ACETAMINOPHEN 500 MG TAB PO PRN ×2 (09:11→17:53)
[2022-05-17] MEDS ORDERED: OLANZapine 5 MG TAB PO SCH (21:00)
[2022-05-17] MEDS: CARBAMIDE PEROXIDE 6.5% OTIC SOLN 15ML AU SCH (21:47)
[2022-05-17] MEDS: OMEPRAZOLE 20MG CAP PO SCH (21:47)
[2022-05-17] MEDS: traZODone 50 MG TAB PO PRN (21:47)
[2022-05-18] MEDS: NICOTINE 21MG/24HR 1 EA TRANSDERMAL TD SCH (09:00)
[2022-05-18] MEDS: CARBAMIDE PEROXIDE 6.5% OTIC SOLN 15ML AU SCH ×2 (09:00→20:18)
[2022-05-18] MEDS: BENZTROPINE 1 MG TAB PO SCH ×2 (09:20→20:16)
[2022-05-18] MEDS: MULTIVITAMINS/MINERALS THERAP 1 TAB PO SCH (09:21)
[2022-05-18] MEDS: oxyCODONE 5MG TAB PO PRN ×2 (09:21→20:16)
[2022-05-18 16:18] VITALS: BP 106/70
[2022-05-18] MEDS: ACETAMINOPHEN 500 MG TAB PO PRN (16:24)
[2022-05-18] MEDS: OMEPRAZOLE 20MG CAP PO SCH (20:15)
[2022-05-18] MEDS: traZODone 50 MG TAB PO PRN (20:16)
[2022-05-18] MEDS ORDERED: OLANZapine 10 MG TAB PO SCH (21:00)
[2022-05-19 06:43] VITALS: BP 106/64
[2022-05-19] MEDS: NICOTINE 21MG/24HR 1 EA TRANSDERMAL TD SCH (09:00)
[2022-05-19] MEDS: CARBAMIDE PEROXIDE 6.5% OTIC SOLN 15ML AU SCH ×2 (09:00→21:00)
[2022-05-19] MEDS: BENZTROPINE 1 MG TAB PO SCH ×2 (09:06→20:14)
[2022-05-19] MEDS: MULTIVITAMINS/MINERALS THERAP 1 TAB PO SCH (09:06)
[2022-05-19] MEDS: ACETAMINOPHEN 500 MG TAB PO PRN (09:09)
[2022-05-19] MEDS ORDERED: OLAN20TA14 PO (12:27)
[2022-05-19] MEDS ORDERED: OXYC-517 PO (12:27)
[2022-05-19] MEDS ORDERED: BENZ-52 PO (12:27)
[2022-05-19] MEDS ORDERED: NICO21PAT TD (12:27)
[2022-05-19] MEDS ORDERED: TRAZ-252 PO (12:27)
[2022-05-19] MEDS ORDERED: HALO10TA20 PO (12:27)
[2022-05-19 18:24] VITALS: BP 144/80
[2022-05-19] MEDS: oxyCODONE 5MG TAB PO PRN (20:14)
[2022-05-19] MEDS: traZODone 50 MG TAB PO PRN (20:14)
[2022-05-19] MEDS: OMEPRAZOLE 20MG CAP PO SCH (20:14)
[2022-05-19] MEDS ORDERED: OLANZapine 10 MG TAB PO SCH (21:00)
[2022-05-20 06:06] VITALS: BP 112/64
[2022-05-20] MEDS: BENZTROPINE 1 MG TAB PO SCH (09:00)
[2022-05-20] MEDS: MULTIVITAMINS/MINERALS THERAP 1 TAB PO SCH (09:00)
[2022-05-20] MEDS: NICOTINE 21MG/24HR 1 EA TRANSDERMAL TD SCH (09:00)
[2022-05-20] MEDS: CARBAMIDE PEROXIDE 6.5% OTIC SOLN 15ML AU SCH (09:00)
[2022-05-20] MEDS: ACETAMINOPHEN 500 MG TAB PO PRN (10:11)
== END 2022-05-20 11:51 | disposition home or self-care (01) | DRG 885 ==
LOC: M ED 01:35 → M ED INP 05-10 12:32 → M PSY 05-10 20:24
PROVIDERS: ADMIT Psychiatry & Neurology Psychiatry; ATTEND Student in an Organized Health Care Education/Training Program
DX: F20.9 Schizophrenia, unspecified (principal); R45.851 Suicidal ideations; S62.367A Nondisplaced fracture of neck of fifth metacarpal bone, left hand, initial encounter for closed fracture; S62.396A Other fracture of fifth metacarpal bone, right hand, initial encounter for closed fracture; Z20.822 Contact with and (suspected) exposure to COVID-19; Z79.899 Other long term (current) drug therapy; W22.09XA Striking against other stationary object, initial encounter; Y92.9 Unspecified place or not applicable; Z90.49 Acquired absence of other specified parts of digestive tract; Z81.8 Family history of other mental and behavioral disorders

== ENCOUNTER → 2022-05-26 | Outpatient (CLI) | payer MEDICARE ==
[~2022-05-26] MED LIST changes: +HALO10TA20 PO; +OLAN20TA14 PO; +OXYC-517 PO
== END ==
LOC: M SOG 14:18
PROVIDERS: ATTEND Physician Assistant
DX: M79.641 Pain in right hand (principal); M79.642 Pain in left hand; Z53.9 Procedure and treatment not carried out, unspecified reason

== ENCOUNTER → 2022-06-09 | Outpatient (CLI) | payer MEDICARE, MEDICAID ==
[~2022-06-09] MED LIST changes: -BENZ-52 PO; +BENZ1TAB5 PO
== END ==
LOC: M SOG 08:50
PROVIDERS: ATTEND Student in an Organized Health Care Education/Training Program
DX: Z53.9 Procedure and treatment not carried out, unspecified reason (principal)

== ENCOUNTER 2022-09-12 17:14 | Emergency (ER) | payer MEDICAID, MEDICARE ==
[~2022-09-12] VITALS: Ht 180.3 cm; Wt 70.0 kg
[2022-09-12] MEDS ORDERED: NS 1,000 ML IV ONE (17:45)
[2022-09-12 18:09] LABS: HEMATOCRIT 40.5 % (42.0-52.0); HEMOGLOBIN 14.2 g/dl (13.5-17.5); MEAN CORPUSCULAR HEMOGLOBIN 33.3 pg (27.0-33.0); MEAN CORPUSCULAR HGB CONC 35.1 g/dl (32.0-36.5); MEAN CORPUSCULAR VOLUME 94.8 fl (80.0-96.0); PLATELET COUNT, AUTOMATED 235 10^3/uL (150-450); RED BLOOD COUNT 4.27 10^6/uL (4.30-6.10); WHITE BLOOD COUNT 11.8 10^3/uL (4.0-10.0)
[2022-09-12 18:37] LABS: ACETAMINOPHEN LEVEL < 2.0 UG/ML (10.0-20.0); ALBUMIN 3.7 G/DL (3.2-5.2); ALKALINE PHOSPHATASE 55 U/L (46-116); ALT/SGPT 16 U/L (7.0-40); AST/SGOT 25 U/L (<34); BILIRUBIN,DIRECT 0.1 MG/DL (<0.4); BILIRUBIN,TOTAL 0.3 MG/DL (0.3-1.2); BLOOD UREA NITROGEN 9 MG/DL (9-23); CARBON DIOXIDE LEVEL 23 MMOL/L (20-31); CHLORIDE LEVEL 107 MMOL/L (98-107); CREATININE FOR GFR 0.97 MG/DL (0.70-1.30); GLOMERULAR FILTRATION RATE > 60.0 (>56); GLUCOSE, FASTING 97 MG/DL (60-100); MAGNESIUM LEVEL 1.8 MG/DL (1.8-2.4); POTASSIUM SERUM 3.6 MMOL/L (3.5-5.1); SALICYLATE LEVEL < 3.0 MG/DL (<30); SODIUM LEVEL 141 MMOL/L (136-145); TOTAL PROTEIN 6.6 G/DL (5.7-8.2)
[2022-09-12 18:39] LABS: THYROID STIMULATING HORMONE 10.066 uIU/ML (0.55-4.78)
[2022-09-12 18:46] LABS: AMPHETAMINES LEVEL URINE NEGATIVE (NEGATIVE); BARBITURATES URINE NEGATIVE (NEGATIVE); BENZODIAZEPINES URINE NEGATIVE (NEGATIVE); CANNABINOIDS URINE NEGATIVE (NEGATIVE); COCAINE METABOLITE URINE NEGATIVE (NEGATIVE); METHADONE URINE NEGATIVE (NEGATIVE); OPIATES URINE NEGATIVE (NEGATIVE); PHENCYCLIDINE URINE NEGATIVE (NEGATIVE)
[2022-09-12 18:54] LABS: ETHYL ALCOHOL (ETHANOL) 0.345 % (0.000-0.010)
[2022-09-13 02:36] VITALS: BP 107/68
== END 2022-09-13 02:58 | disposition home or self-care (01) ==
LOC: M ED 17:14 → EDBD 17:14 → M ED 09-13 02:58
DX: F10.129 Alcohol abuse with intoxication, unspecified (principal); U07.1 COVID-19; F20.9 Schizophrenia, unspecified